=== PATIENT | female | born 1950 | race Caucasian/White ===

== ENCOUNTER → 2018-09-27 | Outpatient (CLI) | payer OTHER | LOC: BMCIMAGING 15:11 | PROVIDERS: ATTEND Internal Medicine Geriatric Medicine | DX: M41.86 Other forms of scoliosis, lumbar region (principal); M47.817 Spondylosis without myelopathy or radiculopathy, lumbosacral region ==

== ENCOUNTER → 2018-12-22 | Outpatient (CLI) | payer OTHER | LOC: FIMAGING 13:41 | PROVIDERS: ATTEND Internal Medicine Geriatric Medicine | DX: N64.4 Mastodynia (principal); Z80.3 Family history of malignant neoplasm of breast; N60.02 Solitary cyst of left breast ==